=== PATIENT | female | born 1975 | race Caucasian/White ===

== ENCOUNTER 2023-05-14 10:16 | Emergency (ER) | payer OTHER, SELFPAY ==
[2023-05-14 10:23] VITALS: BP 150/88
[2023-05-14 10:46] VITALS: BMI 28.2
[2023-05-14] MEDS: NSS 1000 IV (10:56)
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
[2023-05-14] MEDS: TORADOL 15 MG IV (11:00)
[2023-05-14 11:05] LABS: Hematocrit 40.7 % (37.0-47.0); Hemoglobin 13.6 g/dL (12.0-16.0); Mean Corp Hgb Conc. 33.4 g/dL (33.0-37.0); Mean Corpuscular Hgb 29.6 pg (27.0-31.0); Mean Corpuscular Volume 88.5 fL (81.0-99.0); Mean Platelet Volume 9.5 fL (7.4-10.4); Platelet Count 265 10^3/uL (130-400); Red Cell Dist. Width 13.4 % (11.5-14.5); White Blood Cell Count 7.6 10^3/uL (4.8-10.8)
[2023-05-14 11:14] LABS: HCG, Serum Qualitative Screen Negative
[2023-05-14 11:21] LABS: Blood Urea Nitrogen 20 mg/dl (7-17); Calcium 9.3 mg/dl (8.4-10.2); Carbon Dioxide 27 mmol/L (22-30); Chloride 104 mmol/L (98-107); Estimated Creatinine Clearance 104 ml/min; Glucose 92 mg/dl (70-99); Potassium 3.8 mmol/L (3.5-5.1); Sodium 136 mmol/L (135-145); eGFR > 60.00
[2023-05-14 14:25] VITALS: BP 127/76
[2023-05-14 15:02] VITALS: BP 136/86
[2023-05-14 15:08] VITALS: BP 136/86
== END 2023-05-14 16:13 | disposition home or self-care (01) ==
LOC: EMR 10:16
PROVIDERS: EMERGENCY PHYSICIAN Emergency Medicine; FAMILY PHYSICIAN Internal Medicine
DX: N93.9 Abnormal uterine and vaginal bleeding, unspecified (principal); J45.909 Unspecified asthma, uncomplicated; M06.9 Rheumatoid arthritis, unspecified; Z90.49 Acquired absence of other specified parts of digestive tract
CPT/HCPCS: 99284; 96374; 96361; 76856; 80048; 84703; 85027; 86850; 86900; 86901

== ENCOUNTER → 2023-07-05 14:18 | Outpatient (REF) | payer BC, OTHER, SELFPAY | LOC: RCS 14:18 | PROVIDERS: ATTENDING PHYSICIAN Physician Assistant; REFERRING PHYSICIAN Internal Medicine Cardiovascular Disease | DX: R07.9 Chest pain, unspecified (principal); R06.02 Shortness of breath; M06.09 Rheumatoid arthritis without rheumatoid factor, multiple sites | CPT/HCPCS: 93017 ==

== ENCOUNTER → 2023-11-07 12:40 | Outpatient (REF) | payer BC, OTHER, SELFPAY | LOC: MRI 3T 12:40 | PROVIDERS: ATTENDING PHYSICIAN Internal Medicine; FAMILY PHYSICIAN Physician Assistant | DX: M19.90 Unspecified osteoarthritis, unspecified site (principal) | CPT/HCPCS: 72195 ==

== ENCOUNTER → 2023-12-20 12:44 | Outpatient (REF) | payer BC, OTHER, SELFPAY | LOC: RAD 12:44 | PROVIDERS: ATTENDING PHYSICIAN Internal Medicine; FAMILY PHYSICIAN Physician Assistant | DX: R07.89 Other chest pain (principal) | CPT/HCPCS: 71046 ==